=== PATIENT | female | born 1990 ===

== ENCOUNTER 2024-06-02 16:37 | Day surgery (SDC) | payer BC ==
[2024-06-02] MEDS: cefTRIAXone 1 GM in Sodium Chloride 0.9% 50 ML IV ONE (17:13)
[2024-06-02] MEDS: metroNIDAZOLE/Normal Saline 500 MG in Premix Bag 1 BAG IV SCH (17:13)
[2024-06-02] MEDS: Ondansetron 4 MG/2 ML SDV IVPUSH ONE (17:13)
[2024-06-02] MEDS: Morphine 4 MG/ML Syringe IVPUSH ONE ×2 (17:13→19:38)
[2024-06-02] MEDS: Sodium Chloride 0.9% 1,000 ML IV ONE (17:18)
[2024-06-03] MEDS ORDERED: Morphine 10 MG/ML SDV ONE (01:04)
[2024-06-03] MEDS ORDERED: Rocuronium Bromide 50 MG/5 ML Syringe ONE (01:04)
[2024-06-03] MEDS ORDERED: fentaNYL 100 MCG/2 ML SDV ONE (01:04)
[2024-06-03] MEDS ORDERED: Ropivacaine 0.5% 5 MG/ML 30 ML SDV ONE (01:07)
[2024-06-03] MEDS ORDERED: Bupivacaine 0.25% 30 ML SDV ONE ×2 (01:07→01:11)
[2024-06-03] MEDS ORDERED: propofoL 50 ML ONE (01:09)
[2024-06-03] MEDS ORDERED: Propofol 200 MG/20 ML SDV ONE (01:11)
[2024-06-03] MEDS ORDERED: dexmedeTOMIDine HCl 200 MCG/2 ML SDV ONE (01:13)
[2024-06-03] MEDS ORDERED: Naloxone 0.4 MG/ML SDV IVPUSH PRN (01:25)
[2024-06-03] MEDS ORDERED: fentaNYL 50 MCG/ML SDV IVPUSH PRN (01:25)
[2024-06-03] MEDS ORDERED: Ondansetron 4 MG/2 ML SDV IVPUSH PRN ×2 (01:25→02:36)
[2024-06-03] MEDS ORDERED: Albuterol 0.083% 2.5 MG/3 ML Neb Soln NEB PRN (01:25)
[2024-06-03] MEDS ORDERED: droPERidol 5 MG/2 ML SDV IVPUSH PRN (01:25)
[2024-06-03] MEDS ORDERED: Metoclopramide 10 MG/2 ML SDV IVPUSH PRN (01:25)
[2024-06-03] MEDS ORDERED: HYDROmorphone 1 MG/ML Syringe IVPUSH PRN (01:25)
[2024-06-03] MEDS ORDERED: Dexamethasone 4 MG/ML 5 ML MDV ONE (01:45)
[2024-06-03] MEDS ORDERED: Ondansetron 4 MG/2 ML SDV ONE (01:45)
[2024-06-03] MEDS ORDERED: Magnesium Sulfate (4.06 MEQ/ML) 5 GM/10 ML SDV ONE (01:46)
[2024-06-03] MEDS ORDERED: Sugammadex Sodium 200 MG/2 ML VIAL IV ONE (02:11)
[2024-06-03] MEDS ORDERED: Ketorolac 30 MG/ML SDV ONE (02:11)
[2024-06-03] MEDS: Acetaminophen/HYDROcodone 325-5 MG Tab PO PRN (03:47)
[2024-06-03] MEDS: Morphine 2 MG/ML SYRINGE IVPUSH PRN (06:55)
== END 2024-06-03 11:55 | disposition home or self-care (01) ==
LOC: MW.ED 16:37 → MW.SDS 18:07 → MW.MS 19:24 → MW.SDS 06-03 11:55
PROVIDERS: ATTEND Surgery
DX: K35.33 Acute appendicitis with perforation, localized peritonitis, and gangrene, with abscess (principal); F41.9 Anxiety disorder, unspecified; Z79.899 Other long term (current) drug therapy; Z88.0 Allergy status to penicillin
CPT/HCPCS: 44970; 81025; 96361; 96365; 96368; 96375; 96376; 99285; A9270; J0131; J0665; J0696; J1100; J1836; J1885; J2270; J2405; J2704; J2795; J3010; J3475; J3490; J7030; 00840; 36415; 64488; 74177; 74177-26; 80053; 81001; 85025; Q9967